=== PATIENT | female | born 1990 | race Caucasian/White ===

== ENCOUNTER 2016-05-05 12:31 | Emergency (ER) | payer BC ==
--- NOTE | 2016-06-11 04:01 | ER ---
ADMIT: 05/05/2016 RM/LOC: ER [facility] MR#: [id number] [address] [id number] LALO POTTER [address] [place] [address] Emergency Room Report SEX: F AGE: 25 : 1990 DATE: 05/05/2016 ADDENDUM: This patient comes into the ER because she has had abdominal pain on and off for the last month. It is in the epigastric area. She is very nauseated and has a loss of appetite. She did have Lap-Band surgery done and had a recent weight loss of 170 pounds. On physical exam, her pain is all in the epigastric area and right upper quadrant. CBC, CMP, and lipase were normal. Urinalysis was normal. Ultrasound of her gallbladder was normal. DIAGNOSIS: Epigastric pain. I wrote a prescription for Zantac 150 mg and tramadol 50 mg. If she is not better in a week, she needs to follow up with Dr. Monique. Please see my T- sheet. KAILA Ang / Cj Hoffmann MD / shane JOB #: [id number] CC: Cj Hoffmann MD, Attending Physician Cirilo Monique MD, Family Physician
== END 2016-05-05 14:57 | disposition home or self-care (01) ==
LOC: ER 12:31
DX: R10.13 Epigastric pain (principal)